=== PATIENT | male | born 1995 | race Two or more races ===

== ENCOUNTER 2024-04-19 20:20 | Emergency (ER) | payer SELFPAY ==
[~2024-04-19] VITALS: Ht 167.6 cm; Wt 59.3 kg
[2024-04-19 20:45] VITALS: BP 114/77; PULSE 70; RESP 16; TEMP 98.6; O2SAT 97
== END 2024-04-20 00:53 | disposition home or self-care (01) ==
LOC: ER 20:20
DX: S93.402A Sprain of unspecified ligament of left ankle, initial encounter (principal); W50.1XXA Accidental kick by another person, initial encounter; Y93.66 Activity, soccer; Y92.89 Other specified places as the place of occurrence of the external cause; Y99.8 Other external cause status
CPT/HCPCS: 73610